=== PATIENT | female | born 1950 | race Caucasian/White ===

== ENCOUNTER → 2016-09-25 | Outpatient (CLI) | payer MEDICARE ==
[~2016-09-25] MED LIST: ATIVAN1 M1 PO; TRAZADONE HYDR100 MG PO
--- NOTE | 2016-09-25 16:06 | RADIOLOGY REPORT PS360 ---
BONE DENSITOMETRY(HIP:LT SPINE HISTORY: POST MENOPAUSAL ORDERING PHYSICIAN: Shan Cordero MD PATIENT AGE: 66 years COMPARISON: None FINDINGS: The BMD measured at L1-L4 is 0.576 g/sq cm with a T score of -5.0. This is considered osteoporotic according to the World Health Organization criteria. Fracture risk is high. Treatment should be initiated not already prescribed. The mean density of the proximal femurs is 0.471 g percent meters squared with a T score of -4.3 consistent with osteoporosis. IMPRESSION: Osteoporosis with high fracture risk. Treatment should be initiated if not already prescribed. Recommend follow-up exam in September 2017
--- NOTE | 2016-09-26 09:06 | RADIOLOGY REPORT PS360 ---
EXAM: CT LUNG LOW DOSE WO CONTRAST COMPARISON: None HISTORY: 66 year old female with greater than 30 pack-year smoking history asymptomatic ORDERING PHYSICIAN: Shan Cordero MD PATIENT AGE: 66 years TECHNIQUE: The exam was performed on a GE Light Speed [address] scanner using 2.94 mGy CTDI. A low dose helical CT CHEST was performed on a multi-detector scanner The LDCT was performed in a facility that meets the criteria for the screening program. Data regarding this exam was submitted to [employer] which is an approved registry. The order for this exam indicates that it came as a result of a lung cancer screening counseling shard decision-making visit that included all the elements required of such a visit including smoking cessation. The radiologist interpreting this exam meets the [facility] criteria for the LDCT lung cancer screening program. The exam is reported using the Lung-RADS classification scale and reported to the [employer] registry. NOTE: THIS STUDY WAS PERFORMED FOR THE SPECIFIC PURPOSES OF LUNG CANCER SCREENING AND IS NOT AN ALTERNATIVE TO DIAGNOSTIC CHEST CT RADIATION DOSE: CTDI vol(CT dose Index-volume) = 2.94mG DLP (Dose Length Product) = 102.23 mGcm FINDINGS: Centrilobular emphysematous changes are present with biapical pleural thickening with nodularity in the right apex probably related to fibrotic changes. Noncalcified 5 x 8 mm nodule right apex. There are multiple small nodular soft tissue lesions in the right upper lobe ranging in size from 2 mm to 5 mm. These are indeterminate. There is a large calcified granuloma in the right lower lobe at 14 mm and a 4 mm noncalcified nodule in right lower lobe medially. 4 mm noncalcified nodule left upper lobe along with other 1 to 2 mm noncalcified nodules in the left upper and left lower lobe. Status post prior aortic arch stent graft. Coronary artery calcifications are present. Heart size is normal. There is a partially calcified left adrenal nodule measuring up to 18 mm. IMPRESSION: 1. Lung RADS Category: 3, probably benign regarding the largest nodule however, there are multiple noncalcified nodular densities present in both lungs. While this could be infectious or inflammatory, one cannot see the possibility of neoplasm such as metastasis. Does the patient have a history of primary carcinoma? If not then, would consider 3 month follow-up instead of the normal six-month follow-up for probably benign findings in the apex. 2. Other findings: Emphysema, coronary artery disease, partially calcified left adrenal nodule RECOMMENDATIONS: [address]
--- NOTE | 2016-09-28 08:04 | RADIOLOGY REPORT PS360 ---
DIG MAMM-SCREEN HOA W/CAD CAD Screening COMPARISON: None, patient had previous mammograms in the early but does not know where INDICATION: There is a history of breast cancer in patient's sister. TECHNIQUE: Standard CC and MLO images were obtained. R2 CAD reviewed. FINDINGS: There is a markedly and diffusely dense parenchymal pattern definitely lessening the sensitivity of mammography. There are scattered benign-appearing calcifications in each breast. There is no suspicious lesion in either breast and there are no suspicious microcalcifications. However because of the diffusely dense parenchymal pattern and lack of previous studies for comparison I suggest the patient should have bilateral breast ultrasound for better overall evaluation. IMPRESSION: Markedly dense parenchymal pattern and as mentioned above suggest patient have follow-up bilateral breast ultrasound for better baseline evaluation in view of the the lack of previous studies for comparison and family history of breast cancer BI-RADS CATEGORY: 0_Incomplete: Need additional imaging RECOMMENDED FOLLOWUP: USB ULTRASOUND-BREAST (A letter has been sent to the patient regarding results of the study.)
== END ==
LOC: RAD 14:10
DX: Z78.0 Asymptomatic menopausal state (principal); Z72.0 Tobacco use; Z87.891 Personal history of nicotine dependence; Z12.31 Encounter for screening mammogram for malignant neoplasm of breast
CPT/HCPCS: G0202; G0297